=== PATIENT | male | born 1955 | race Caucasian/White ===

== ENCOUNTER → 2021-03-31 10:39 | Outpatient (CLI) | payer BC, SELFPAY ==
--- NOTE | 2021-03-31 10:41 | DI.US.S_ITS ---
PROCEDURE: US SCROTUM INDICATIONS: LEFT HYDROCELE TECHNIQUE: Real-time scanning was performed of the scrotum and testicles, with image documentation. Color and pulse Doppler interrogation was performed of both testicles. COMPARISON: None. FINDINGS: Right: Testicle is normal in size at 4.4 x 3.1 x 2.3 cm, and homogenous in echotexture. Epididymis is normal in overall size and morphology. Small complex epididymal cyst measuring 4 x 8 x 5 mm No hydrocele or varicoceles. Overlying scrotal skin is normal in thickness. Left: Testicle is normal in size at 4.9 x 3.4 x 2.7 cm, and homogeneous in echotexture. Epididymis is not well seen. Large left hydrocele. Overlying scrotal skin is normal in thickness. Doppler: Color and pulse Doppler demonstrate normal and symmetric arterial flow in both testicles. IMPRESSION: 1. Normal appearance of the testicles bilaterally. 2. Large left hydrocele. 3. Complex left epididymal cyst. Dictated by: Tanner Borrego [facility] Interpreted: Andrew French MD on 03/31/2021 at 11:14 Transcribed by: TITO on 03/31/2021 at 11:15 Approved by: Andrew French M.D. on 03/31/2021 at 16:32
== END ==
PROVIDERS: PCP Internal Medicine; Referring Provider Specialist; Visit Provider Specialist
DX: N43.3 Hydrocele, unspecified (principal); N50.3 Cyst of epididymis
CPT/HCPCS: 76870

== ENCOUNTER → 2021-05-13 15:11 | Outpatient (CLI) | payer BC, SELFPAY ==
[2021-05-13 16:13] LABS: COVID19 -Nasal RAPID Negative (Negative)
== END ==
PROVIDERS: PCP Internal Medicine; Visit Provider Specialist
DX: Z20.822 Contact with and (suspected) exposure to COVID-19 (principal)
CPT/HCPCS: 87635; C9803

== ENCOUNTER 2021-05-16 07:08 | Day surgery (SDC) | payer BC, SELFPAY ==
[2021-05-02 12:02] VITALS: BMI 23.3
[2021-05-16] VITALS (11 sets, daily range): BP systolic 94–147; BP diastolic 53–86; PULSE 42–83; RESP 12–17; TEMP 35.9–36.3; O2SAT 97–100; BMI 23.3
--- NOTE | 2021-05-16 07:28 | P.OP.PRE_ITS ---
Pre-operative Note COVID-19 COVID-19 status: Negative Criteria for continued procedure: Expected advancement of disease process, Possibility delay results in more complex future surgery or treatment, Increased loss of function, Continuing or worsening of significant or severe pain and Non- surgical alternatives not available or appropriate per current SOC Interval Note History & Physical reviewed/Exam performed by Physician: Yes Changes to H&P: No
[2021-05-16] MEDS: LACTATED RINGERS 1,000 ML 42 ML IV (07:44)
[2021-05-16] MEDS: CEFAZOLIN 2 GM/20 ML SYRINGE IV (08:00)
--- NOTE | 2021-05-16 08:16 | SUR.OPER ---
Supine on padded OR bed, head on pillow, arms secured on padded arm boards at <90 degrees abduction, legs uncrossed, safety belt at thigh, tape over blanket over lower legs.
[2021-05-16] MEDS: BUPIVACAINE LIPOSOME 266 MG/20 ML VIAL INJ (08:35)
[2021-05-16] MEDS: BUPIVACAINE 0.25% W/ EPI 30 ML VIAL INJ (08:39)
[2021-05-16] MEDS: NEOMYCIN/POLYMYXIN/BACITRA UD OINT 1 EACH TOP (08:40)
--- NOTE | 2021-05-16 09:40 | P.OP_ITS ---
Operative Date/Time/Diagnoses Date of procedure: 05/16/21 Time of procedure: 09:42 Pre-op diagnosis: Left hydrocele Post-op diagnosis: same Procedure & Clinicians Procedure: Left hydrocelectomy Same procedure as scheduled: Yes Indications: Symptomatic left hydrocele Surgeon: Ana Munoz Click Yes if Unassisted: Yes Anesthesia Type: General and Local (1.33% Exparel) Operative Notes Findings: Hydrocele had estimated volume of approximately 150 cc clear straw-colored fluid. It was tense and under considerable pressure. The hydrocele sac itself was thickened with evidence of chronic inflammation and adhesion to the dartos fascia posteriorly and laterally. Closure Type: primary Specimen(s): none sent Applied: other (Ten Mongolian Sae drain) Estimated Blood Loss (mL): 2 Blood products transfused: none Procedure in detail: Patient was positioned supine was administered general anesthesia. The lower abdomen, genitalia, and groin were then prepped and draped in sterile fashion. Solution of 0.5% Marcaine with epinephrine was then used to infiltrate the skin and subcutaneous dartos fashion the midline scrotum. The needlepoint cautery pen was then used to create incision in the skin and subcutaneous dartos fascia down the level of the tunica vaginalis on the left. He appropriate plane was then developed and using blunt sharp and cautery dissection the entire fluid containing tunica vaginalis was delivered from the left hemiscrotum. The structure was then opened in the midline longitudinally and fluid contents drained completely. A book repairer repair was then performed in usual fashion using a running horizontal mattress of 2-0 Monocryl. The testis and cord were then repositioned anatomically within the left hemiscrotum and was secured with 2 interrupted 2-0 Monocryl at the inferior pole and at a point just above the epididymal head to the posterior scrotal wall. Exparel anesthetic was then infiltrated in the dartos fashion scan on left inferior lateral aspect of the scrotum. A 10 Mongolian Sae drain was then positioned appropriately within the left hemiscrotum. The distal end was trimmed to an appropriate length. It was secured to the skin with 2-0 silk suture in standard fashion. The midline dartos fashion skin was then infiltrated with Exparel anesthetic. The dartos fascia was then reapproximated using a running 2-0 Monocryl. Skin was then reapproximated using a running horizontal mattress of 4-0 Monocryl. The scrotal skin was then cleaned and dried and antibiotic ointment was applied to the incision line and drain site. The drain was attached to bulb self suction. Dry sterile fluffs were then applied to the scrotum and the patient was fitted with an athletic supporter. He was then awakened, transferred to [facility] and then transported recovery in stable condition. Complications: none Post-operative Condition: stable Disposition: PACU Plan for aftercare: Discharge home
[2021-05-16] MEDS: OXYCODONE/ACETAMINOPHEN 5/325 TABLET 1 TAB PO (10:05)
[2021-05-16] MEDS: ONDANSETRON 4 MG/2 ML INJ IV (10:05)
--- NOTE | 2021-05-16 11:17 | SUR.PHASEII ---
1045-Dr Munoz at bedside to re evaluate bayron drain. still not maintaining suction. stated to continue to try, but if all fails, will act as passive drain. very scant pink drainage in Bayron drain. jock strap/dressing cdi. Drain still secured in at skin per Dr Munoz. 1110-Bayron recompressed again. patient shown earlier and practiced emptiying drain. given supplies for home. Home instructions completed. vss. meets criteria. discharged to home with all belongings,paperwork, and understands to stop at pharmacy for RX,peripads,and ointment.
== END 2021-05-16 11:12 | disposition home or self-care (01) ==
PROVIDERS: PCP Internal Medicine; Referring Provider Specialist; Visit Provider Specialist
PROC: (CPT 55040; principal; 2021-05-16 07:45)
DX: N43.3 Hydrocele, unspecified (principal); Z80.42 Family history of malignant neoplasm of prostate
CPT/HCPCS: 55040; C9290; J0690; J1100; J1885; J2250; J2405; J2704; J3010

== ENCOUNTER 2024-04-14 06:52 | Day surgery (SDC) | payer BC, MEDICARE, SELFPAY ==
--- NOTE | 2024-04-14 | PATH_ITS ---
[facility] Accession Number: [id number] No. of containers..01 Tissue . 01 Material submitted: . colon - SPLENIC FLEXURE POLYPS . 01 Diagnosis: SPLENIC FLEXURE POLYPS: Tubular adenoma x2. MRV 04/17/2024 1457 Local . 01 Electronically signed: . Alejo Iyer MD, PhD, Pathologist NPI- [id number] . 01 Gross description: . Received in formalin, labeled with two patient identifiers and 1. Splenic flexure polyps, are two rios soft tissue fragments measuring 0.5-0.8 cm in greatest dimension. Submitted in cassette A1. ([id number]) /FRR 04/15/2024 1819 Local . 01 Pathologist provided ICD-10: D12.3 . 01 CPT . 961909 Specimen Comment: A courtesy copy of this report has been sent to [facility] Performed at: [address] [id number] MD Molina Leo MD Phone: [phone]
[2024-04-14 07:17] VITALS: BP 144/81; PULSE 78; RESP 16; TEMP 36.6; O2SAT 98
[2024-04-14] MEDS: SODIUM CHLORIDE 0.9% 1,000 ML 84 ML IV (07:32)
--- NOTE | 2024-04-14 08:11 | P.HP_ITS ---
History of Present Illness History of Present Illness Date Patient Seen: 04/14/24 Time Patient Seen: 08:11 Chief complaint: SDC Narrative: 68-year-old white male presents for screening colonoscopy. Last colonoscopy 10 years ago was negative. He had 1 with polyps prior to that. His father had colon cancer approximately age 58. No changes in bowel habits PFSH Medical History Gilbert's syndrome Family history of prostate cancer Abnormal prostate exam Left hydrocele Abnormal LFTs H/O renal calculi H/O adenomatous polyp of colon Cataracts, bilateral (~2009) Kidney stones (~1987) Surgical History S/P repair of hydrocele (~04/2021) Family History Father Family history of colon cancer Mother Fam hx-ischem heart disease Social History marital status: number of children: 2 household members: spouse lives independently: Yes caregiver/support person: No housing: house pets and animals: Yes education level: other occupational status: employed current occupational exposures/hazards: No Previous occupational history: informational technology dorys/jehovah's witness: Islam leisure activities: other Smoking Status: Never smoker Tobacco: How many years used: 0 quit status: quit date established second hand exposure: No alcohol intake: current substance use type: does not use eating out: 4 or more times/week Type(s) of exercise: bicycling Meds Home Medications and Allergies Home Medications Medication Instructions Recorded Confirmed Type sildenafil 100 mg tablet (Viagra) See Rx Instructions PO QDAYP PRN 04/14/19 02/08/24 Rx sexual activity #10 tabs Allergies Allergy/AdvReac Type Severity Reaction Status Date / Time No Known Drug Allergies Allergy Verified 04/14/24 07:14 Review of Systems Review of Systems ROS: Yes All systems reviewed with the patient and are negative except as otherwise documented Exam Vital Signs (past 8 hours): - 04/14/24 07:17 Temperature 97.9 F Pulse Rate 78 Respiratory Rate 16 Blood Pressure 144/81 H Pulse Oximetry 98 Oxygen Delivery Method Room Air Oxygen Delivery Method Room Air Narrative Exam Narrative: Gen: NAD, sitting comfortably in bed, appears well HEENT: Sclera are anicteric, head is normocephalic and atraumatic, trachea is midline. CV: RRR, no JVD Resp: clear to auscultation bilaterally, equal chest wall movement bilaterally Abd: soft, nontender, normoactive bowel sounds Ext: no edema, full range of motion Neuro: Cranial nerves II-XII grossly intact, no focal deficits Skin: No erythema or ecchymosis Assessment & Plan Assessment and plan (1) H/O adenomatous polyp of colon: Status: Inactive Assessment & Plan narrative: Patient presents for colonoscopy Risks, benefits, alternatives to colonoscopy explained, including but not limited to bowel perforation or other serious complication requiring surgery at less than 1 in 5000 colonoscopies, abdominal pain, cramping or bleeding and less than 1% of colonoscopies, and the chances that we find a diagnosis that would require further intervention of about 2%. Patient agrees to proceed. Time-Based Coding :: [TOTAL MINUTES] spent with patient and on the chart (including review of chart, obtaining history, exam, reviewing outside data, placing orders, documenting exam and treatment plan, and counseling patient) on [DATE]. [employer] Operator Document charge(s): No
--- NOTE | 2024-04-14 08:42 | PM.OP.COLON ---
Operative Date/Time/Diagnoses Date of procedure: 04/14/24 Time of procedure: 08:42 Pre-op diagnosis: Personal history of polyps Post-op diagnosis: same (Splenic flexure polyps x2, pancolonic diverticulosis) Procedure & Clinicians Study performed: Colonoscopy with cold snare polypectomy x2, splenic flexure polyps Same procedure as scheduled: Yes (Personal history of polyps) Surgeon: Kev Issa Procedure Notes SCOAP/Timeout: Performed Procedure in detail: Time-out was performed. Mac was induced. Patient was placed in left lateral decubitus position. The perineum was inspected without any gross abnormality. Lubricated pediatric colonoscope was inserted and advanced to the cecum. The terminal ileum was intubated. The colonoscope was withdrawn slowly inspecting the circumference of the colon. There were 2 polyps noted at the splenic flexure, these were completely taken by cold snare polypectomy and both were retrieved. Pancolonic diverticulosis was noted. Very small polyps may have been missed, prep quality was adequate. Retroflexed view of the rectum showed small, non prolapsed nonbleeding internal hemorrhoids. The scope was withdrawn the patient was taken to PACU in good condition. Scope withdrawal time: 11 Sedation minutes: 21 Findings: divertiulosis and polyp(s) Specimen(s): other (1. Splenic flexure polyps x2) Complications: none Impression: Colon polyps Post-procedure Recommendations: Colonoscopy in 5 years Follow up: as needed Disposition: PACU
[2024-04-14 08:45] VITALS: BP 108/68; PULSE 74; RESP 14; TEMP 36.2; O2SAT 94
[2024-04-14 08:50] VITALS: BP 98/66; PULSE 68; RESP 14; O2SAT 95
[2024-04-14 08:55] VITALS: BP 98/66; PULSE 71; RESP 16; O2SAT 96
[2024-04-14 09:00] VITALS: BP 97/70; PULSE 69; RESP 14; TEMP 36.7; O2SAT 95
[2024-04-14 09:15] VITALS: BP 111/78; PULSE 63; RESP 16; O2SAT 96
== END 2024-04-14 09:21 | disposition home or self-care (01) ==
PROVIDERS: PCP Internal Medicine; Referring Provider Surgery; Visit Provider Surgery
PROC: 0DJD8ZZ Inspection of Lower Intestinal Tract, Via Natural or Artificial Opening Endoscopic (ICD-10-PCS; CPT 45378; principal; 2024-04-14 08:15)
DX: Z12.11 Encounter for screening for malignant neoplasm of colon (principal); D12.3 Benign neoplasm of transverse colon; K57.30 Diverticulosis of large intestine without perforation or abscess without bleeding; K64.8 Other hemorrhoids; Z86.0101 Personal history of adenomatous and serrated colon polyps; Z80.0 Family history of malignant neoplasm of digestive organs
CPT/HCPCS: 45385; J2704